=== PATIENT | male | born 1960 | race Caucasian/White ===

== ENCOUNTER → 2021-06-03 | Outpatient (CLI) | payer MEDICAID ==
--- NOTE | 2021-06-03 11:27 | 2DMMODE ---
[place] [address] 2 D/M-MODE ECHOCARDIOGRAM Name: CORKY POPE Room: [facility]#: [id number] Admission: 06/03/21 Attend Phys: Ozzie Goodwin, Discharge: Date of : 62 Date of Service: 06/03/21 1127 Report #: [id number] THIS REPORT FOR: cc: Hien Lr,Ant Gold MD [facility] ~ APPROVED REPORT Study performed: 06/03/2021 11:32:50 EXAM: Comprehensive 2D, Doppler, and color-flow Echocardiogram Patient Location: Out-Patient BSA: 2.09 HR: 72 bpm BP: 111/84 mmHg Other Information Study Quality: Good Indications Chest Pain 2D Dimensions IVSd: 9.84 (7-11mm) LVOT Diam: 20.36 (18-24mm) LVDd: 42.16 mm PWd: 11.28 (7-11mm) Ascending Ao: 28.64 (22-36mm) LVDs: 30.02 (25-40mm) Aortic Root: 36.58 mm Volumes Left Atrial Volume (Systole) LA ESV Index: 14.40 mL/m2 Aortic Valve AoV Peak Radhames.: 1.19 m/s AO Peak Gr.: 5.62 mmHg LVOT Max P.73 mmHg AO Mean Gr.: 3.10 mmHg LVOT Mean P.29 mmHg LVOT Max V: 1.20 m/s AO V2 VTI: 24.08 cm LVOT Mean V: 0.68 m/s ROSE MARIE (VTI): 3.20 cm2 LVOT V1 VTI: 23.64 cm Mitral Valve E/A Ratio: 1.19 [place] [address] 2 D/M-MODE ECHOCARDIOGRAM Name: CORKY POPE Room: [facility]#: [id number] Admission: 06/03/21 Attend Phys: Ozzie Goodwin, Discharge: Date of : 62 Date of Service: 06/03/21 1127 Report #: [id number] MV Decel. Time: 186.47 ms MV E Max Radhames.: 0.69 m/s MV PHT: 54.08 ms MVA (PHT): 4.07 cm2 TDI E/Lateral E': 6.27 E/Medial E': 7.67 Medial E' Radhames.: 0.09 m/s Lateral E' Radhames.: 0.11 m/s Pulmonary Valve PV Peak Radhames.: 1.07 m/s PV Peak Gr.: 4.57 mmHg Left Ventricle The left ventricle is normal size. There is normal LV segmental wall motion. There is normal left ventricular wall thickness. Left ventricular systolic function is normal. The left ventricular ejection fraction is within the normal range. LVEF is 60%. The left ventricular diastolic function is normal. Right Ventricle The right ventricle is normal size. The right ventricular systolic function is normal. Atria The left atrium size is normal. The right atrium size is normal. Aortic Valve The aortic valve is normal in structure. No aortic regurgitation is present. There is no aortic valvular stenosis. Mitral Valve The mitral valve is normal in structure. Trace mitral regurgitation. No evidence of mitral valve stenosis. Tricuspid Valve The tricuspid valve is normal in structure. There is no tricuspid valve regurgitation noted. Pulmonic Valve The pulmonary valve is normal in structure. There is no pulmonic valvular regurgitation. Great Vessels The aortic root is normal in size. IVC [place] [address] 2 D/M-MODE ECHOCARDIOGRAM Name: CORKY POPE Room: [facility] Ha#: [id number] Admission: 06/03/21 Attend Phys: Ozzie Goodwin, Discharge: Date of : 62 Date of Service: 06/03/21 1127 Report #: [id number] collapses >50% with inspiration. Pericardium There is no pericardial effusion. <Conclusion> The left ventricle is normal size. There is normal left ventricular wall thickness. Left ventricular systolic function is normal. The left ventricular ejection fraction is within the normal range. LVEF is 60%. The right ventricle is normal size. The left atrium size is normal. The aortic valve is normal in structure. The mitral valve is normal in structure. Trace mitral regurgitation. The tricuspid valve is normal in structure. IVC is normal in size and collapses >50% with inspiration. There is no pericardial effusion. There is normal LV segmental wall motion. <ELECTRONICALLY SIGNED> By: Ant Whatley MD, FACC 06/03/21 1127 112 112 Ant Whatley MD, FACC /INF
--- NOTE | 2021-06-04 17:06 | CARDNUC ---
[place] [address] CARDIAC NUCLEAR IMAGING REPORT Name: CORKY POPE Room: [facility]#: [id number] Admission: 06/03/21 Attend Phys: Ozzie Goodwin, Discharge: Date of : 62 Date of Service: 06/04/21 1706 Report #: [id number] THIS REPORT FOR: cc: Hien Lr Christine L. DO Liston, Michael J. MD [facility] ~ APPROVED REPORT Imaging Protocol: Stress Tc-99m/Rest Tc-99m 1 day Study performed: 06/03/2021 09:15:08 Indication: Chest pain Patient Location: Out-Patient Stress Nurse: Marisol Santoro RN Ht: 5 ft 8 in Wt: 211 lbs BSA: 2.09 m2 BMI: 32.07 Medical History Medical History: Current Smoker, Arrhythmia Medications: Aspirin, Diltiazem, Nitroglycerin Allergies: No known drug allergies Cardiac Risk Factors: Current Smoker, Age, SOB Exercise History: Sedentary Resting Data Rest SPECT myocardial perfusion imaging was performed in supine position 30 minutes following the intravenous injection of 10.9 mCi of Tc-99m Sestamibi. Time of rest injection: 07:50 The images were gated to evaluate regional wall motion and calculate left ventricular ejection fraction. Administration Route: IV Administration Site: Right AC Pharmacologic Stress Pharmacologic stress test was performed by injecting Regadenoson 0.4 mg IV push over 10-15 seconds immediately followed by the intravenous injection of 33.2 mCi of Tc-99m Sestamibi. Time of stress injection: 09:15 Administration Route: IV Administration Site: Right AC Heart Rate at time of stress injection: 97 bpm. Gated Stress SPECT was performed 45 [place] [address] CARDIAC NUCLEAR IMAGING REPORT Name: CORKY POPE [id number] Admission: 06/03/21 Attend Phys: Ozzie Goodwin, Discharge: Date of : 62 Date of Service: 06/04/21 1706 Report #: [id number] injection. The images were gated to evaluate regional wall motion and calculate left ventricular ejection fraction. Prone imaging was performed. Stress Test Details Stress Test: Pharmacologic stress testing performed using 0.4 mg of regadenoson per 5 mL given IV over 10 seconds. Reason for pharmacologic stress test: physical limitation. HR Max Heart Rate (APMHR): 160 bpm Resting HR: 77 bpm Target HR (85% APMHR): 136 bpm Max HR Achieved: 97 bpm % of APMHR: 60 Recovery HR: 88 bpm BP Resting BP: 111/84 mmHg Max BP: 129/78 mmHg Recovery BP: 119/76 mmHg ECG Resting ECG: Sinus Rhythm Stress ECG: Sinus Rhythm ST Change: None Arrhythmia: None Recovery ECG: Sinus Rhythm Recovery ST Change: None Recovery Arrhythmia: None Clinical Reason for Termination: Completed protocol The patient tolerated Lexiscan infusion without significant cardiac symptoms. Nurse Comments gait unsteady. cannot walk on treadmill Stress ECG Conclusion The baseline twelve-lead EKG shows sinus rhythm without significant ST segment or T wave abnormality. EKGs obtained during and post Lexiscan infusion show sinus rhythm with no significant ST segment changes when compared to baseline. There were no stress-induced arrhythmias. Study Quality Study: [place] [address] CARDIAC NUCLEAR IMAGING REPORT Name: CORKY POPE Room: [facility]#: [id number] Admission: 06/03/21 Attend Phys: Ozzie Goodwin, Discharge: Date of : 62 Date of Service: 06/04/21 1706 Report #: [id number] Artifact: Mild Diaphragmatic artifact Study Data At rest, the left ventricular ejection fraction was 71%.. Post stress, the left ventricular ejection was 67%.. TID = 1.00. Perfusion Perfusion images obtained in the supine position at rest and post Lexiscan stress show mild photopenia in the inferior wall that resolves completely with post-rest prone imaging consistent with diaphragmatic attenuation artifact. No other significant fixed or reversible defects are identified. Wall Motion Normal left ventricular wall motion. Nuclear Conclusion ECG Findings: negative for ischemia Clinical Findings: negative for ischemia Nuclear Findings: negative for ischemia Exercise Capacity: not assessed Left Ventricular Function: normal Risk Study: low Perfusion images show no defect to suggest infarct or ischemia. Left ventricular systolic function appears normal on gated studies. This is a low risk study. <Conclusion> The baseline twelve-lead EKG shows sinus rhythm without significant ST segment or T wave abnormality. EKGs obtained during and post Lexiscan infusion show sinus rhythm with no significant ST segment changes when compared to baseline. There were no stress-induced arrhythmias. <ELECTRONICALLY SIGNED> By: Ozzie Goodwin MD, FACC 06/04/21 170 05 05 Ozzie Goodwin MD, FACC /INF
== END ==
LOC: M.CRD 05-16 08:56 → M.NUC 07:26
PROVIDERS: ATTEND Internal Medicine Cardiovascular Disease
DX: R07.89 Other chest pain (principal); R00.2 Palpitations